=== PATIENT | male | born 1945 | race Caucasian/White ===

== ENCOUNTER 2024-04-14 20:04 | Emergency (ER) | payer MEDICARE, BC ==
[~2024-04-14 20:04] MED LIST: Iopamidol 370 76% 100 ML VIAL ONE
[2024-04-14] MEDS ORDERED: Ondansetron PF 4 MG/2 ML Vial ONE (20:38)
[2024-04-14] MEDS ORDERED: fentaNYL 50 mcg/mL 1 mL Vial ONE ×2 (20:38→23:15)
[2024-04-14 21:13] LABS: #Basophils 0.05 10x3/uL (0.0-0.2); #Eosinophils 0.09 10x3/uL (0.0-0.5); #Monocytes 0.55 10x3/uL (0.0-1.1); #Neutrophils 5.15 10x3/uL (1.5-8.4); %Basophils 0.8 % (0.0-2.0); %Eosinophils 1.5 % (0.0-6.0); %Lymphocytes 2.7 % (18.0-47.0); %Monocytes 9.1 % (0.0-10.0); %Neutrophils 85.4 % (40.0-75.0); Hematocrit 37.6 % (38.8-50.0); Hemoglobin 12.7 g/dL (13.5-17.5); Mean Corpuscular HGB CONC 33.8 g/dL (32.0-36.0); Mean Corpuscular Hemoglobin 31.1 pg (27.0-33.0); Mean Corpuscular Volume 91.9 fL (81.2-95.1); Mean Platelet Volume 9.6 fL (7.4-10.4); Platelet Count 177 10x3/uL (150-450); RBC Distribution Width 12.7 % (11.5-14.5); Red Blood Cell (RBC) Count 4.09 10x6/uL (4.32-5.72)
[2024-04-14 21:23] LABS: ALT (SGPT) 13 U/L (8-55); AST (SGOT) 22 U/L (5-34); Albumin 3.8 g/dL (3.4-4.8); Alkaline Phosphatase 103 U/L (40-110); Anion Gap 21 mmol/L (10-20); BUN (Urea Nitrogen) 22 mg/dL (8.4-25.7); Bilirubin, Total 1.2 mg/dL (0.2-1.2); Calc. Creatinine Clearance 0 mL/min (70-130); Carbon Dioxide 20 mmol/L (23-31); Chloride 101 mmol/L (98-107); Estimated GFR 57; Glucose 100 mg/dL (83-110); Lipase 227 U/L (8-78); Potassium 3.7 mmol/L (3.5-5.1); Protein, Total 6.8 g/dL (5.8-8.1); Sodium 138 mmol/L (136-145)
[2024-04-14 21:29] LABS: Troponin I 0.012 ng/mL (< 0.028)
== END 2024-04-15 01:27 | disposition short-term general hospital (02) ==
LOC: CSHERS 20:04
DX: K65.4 Sclerosing mesenteritis (principal); G89.3 Neoplasm related pain (acute) (chronic); C18.9 Malignant neoplasm of colon, unspecified; R10.9 Unspecified abdominal pain; I10 Essential (primary) hypertension; Z55.6 Problems related to health literacy
CPT/HCPCS: 71275; 74177; 80053; 83605; 83690; 83880; 84484; 85025; 87040; 93005; 96374; 96375; 96376; 99285; J2405; J3010; Q9967; 36415